=== PATIENT | male | born 1960 | race Caucasian/White ===

== ENCOUNTER → 2016-09-06 | Outpatient (CLI) | payer BC ==
[2016-09-06 14:35] LABS: BASOPHILS # (AUTO) 0.03 10*3/UL; BASOPHILS % (AUTO) 0.4 % (0-1); EOSINOPHILS # (AUTO) 0.14 10*3/UL; HEMATOCRIT 41.9 % (42.0-52.0); HEMOGLOBIN 14.4 g/dL (14.0-18.0); LYMPHOCYTES # (AUTO) 1.01 10*3/uL; MEAN CORPUSCULAR HEMOGLOBIN 32.2 PG (27-31); MEAN CORPUSCULAR HGB CONC 34.4 g/dL (33-37); MEAN CORPUSCULAR VOLUME 93.7 FL (80-90); MEAN PLATELET VOLUME 8.9 FL (7.4-12.2); MONOCYTES # (AUTO) 0.79 10*3/UL (0.3-0.8); MONOCYTES % (AUTO) 11.4 % (5-15); NEUTROPHILS # (AUTO) 4.92 10*3/UL; NEUTROPHILS % (AUTO) 70.9 % (50-80); RED BLOOD COUNT 4.47 10^6/uL (4.70-6.10)
[2016-09-06 14:40] LABS: PLATELET MORPHOLOGY COMMENT NORMAL MORPHOLOGY (NORM); RBC MORPHOLOGY COMMENT NORMAL MORPHOLOGY (NORM); WBC MORPHOLOGY COMMENT NORMAL MORPHOLOGY (NORM)
[2016-09-06 17:34] LABS: ERYTHROCYTE SEDIMENTATION RATE 7 MM/HR (0-15)
== END ==
LOC: LAB 10:39
PROVIDERS: ATTEND Physician Assistant Medical
DX: M79.671 Pain in right foot (principal)
CPT/HCPCS: 84550; 85025; 85652